=== PATIENT | male | born 1960 | race Caucasian/White ===

== ENCOUNTER 2019-03-16 02:28 | Emergency (ER) | payer OTHER, SELFPAY ==
[2019-03-16] VITALS (10 sets, daily range): BP systolic 88–136; BP diastolic 60–88; PULSE 61–95; RESP 15–21; TEMP 36.6; O2SAT 92–98; BMI 317.1; BMI 31.2
[2019-03-16] MEDS: PANTOPRAZOLE 40 MG VIAL IV (02:35)
--- NOTE | 2019-03-16 02:35 | DI.RAD.S_ITS ---
PROCEDURE: XR CHEST 1V INDICATIONS: chest pain TECHNIQUE: One view of the chest was acquired. COMPARISON: None. FINDINGS: Surgical changes and devices: None. Lungs and pleura: Lungs are clear. No pleural effusions or pneumothorax. Mediastinum: Mediastinal contours appear normal. Heart size is normal. Bones and chest wall: No suspicious bony lesions. Overlying soft tissues appear unremarkable. IMPRESSION: No acute cardiopulmonary disease process. Dictated by: Peggy العراقي MD, PhD on 03/16/2019 at 8:17 Approved by: Peggy العراقي MD, PhD on 03/16/2019 at 8:17
--- NOTE | 2019-03-16 02:47 | ED_ITS ---
HPI - Chest Pain General Chief Complaint: Chest Pain Stated Complaint: chest pain x8 hours Time Seen by Provider: 03/16/19 02:31 Source: patient Mode of arrival: ambulatory Limitations: no limitations History of Present Illness HPI narrative: Patient is a 58-year-old male with history of insulin-dependent diabetes is presenting with persistent right-sided chest pain. His been ongoing consistently for the last 8 hours it sometimes radiates through to his back. It started while he was watching TV this evening. However yesterday he noticed some symptoms associated with eating would resolve on its own. It is not reproducible with movement or palpitations. He states he has never felt anything like this before. No known history of coronary artery disease. He has no worsening discomfort with exertion or rest. MD complaint: chest pain Onset (ago): hour(s) (8) Related Data Home Medications Medication Instructions Recorded Confirmed glipizide 10 mg tablet 10 mg PO DAILY 12/02/17 12/02/17 Previous Rx's Medication Instructions Recorded Metformin Hydrochloride 500 mg PO BID #60 10/08/11 (#GLUCOPHAGE) Allergies Allergy/AdvReac Type Severity Reaction Status Date / Time No Known Drug Allergies Allergy Verified 12/02/17 10:40 Review of Systems Review of Systems GENERAL: Denies chills, fatigue, malaise, fever, sweats, travel HEENT: Denies sinus pain, ear pain, sore throat, difficulty swallowing, neck pain RESPIRATORY: Denies dyspnea, cough, wheezing, hemoptysis, sputum. CARDIOVASCULAR: See HPI GASTROINTESTINAL: Denies nausea, vomiting, abdominal pain, diarrhea, constipation, melena. : Denies dysuria, frequency, incontinence, hematuria, urinary retention, flank pain. MUSCULOSKELETAL: Denies weakness, joint pain, or bony pain SKIN: No rash, no erythema, no pruritus NEUROLOGIC: Denies weakness, dizziness, headache, numbness, change in speech, confusion PSYCHIATRIC: No concerning psychosocial issues. 12 point review of systems is negative except for those stated above and HPI [facility] Medical History Hyperlipidemia (Acute) Diabetes (Acute) Surgical History Status post appendectomy (Acute) Social History marital status: Smoking Status: Former smoker Social History marital status: Smoking Status: Former smoker Exam Initial Vital Signs Initial Vital Signs: Vital Signs Temperature 97.9 F 03/16/19 02:33 Pulse Rate 76 03/16/19 02:33 Respiratory Rate 18 03/16/19 02:33 Blood Pressure 134/86 03/16/19 02:33 Pulse Oximetry 98 03/16/19 02:33 GENERAL: Well-appearing, well-nourished and in no acute distress. HEENT: Head atraumatic,EOMI, pupils reactive, face symmetric, moist mucous membranes CARDIOVASCULAR: Regular rate and rhythm without murmurs, rubs or gallops. Right-sided pain not reproducible with palpation RESPIRATORY: Breath sounds equal bilaterally, no wheezes rales or rhonchi. ABDOMEN: Soft, nontender. Normoactive bowel sounds all 4 quadrants. No guarding or rebound. EXTREMITIES: Normal range of motion, no clubbing or edema. Neurovascularly intact NEUROLOGICAL: Alert and oriented x4.Normal gait and speech. Cranial nerves II through XII grossly intact. SKIN: Warm, dry, no laceration, no petechiae, no rashes or lesions. Course Orders Ordered: ED Orders 03/16/19 EKG-12 Lead Stat EKG-12 Lead Stat 03/16/19 02:30 Complete Blood Count AUTO DIFF Stat Comprehensive Metabolic Panel Stat Lipase Stat Partial Thromboplastin Time Stat Prothrombin Time INR Stat Troponin & CK Cardiac Panel Stat 03/16/19 02:35 XR chest 1V Stat EKG-12 Lead Stat Discontinued Medications Aspirin (Aspirin Chew) 324 mg PO NOW ONE Stop: 03/16/19 02:36 Last Admin: 03/16/19 03:30 Dose: 324 mg Heparin Sodium (Porcine) (Heparin) 5,000 unit IV NOW ONE Stop: 03/16/19 03:28 Last Admin: 03/16/19 03:32 Dose: 5,000 unit Sodium Chloride (Normal Saline 0.9%) 1,000 mls @ 150 mls/hr IV CONT ROYER Last Admin: 03/16/19 03:01 Dose: 150 mls/hr Heparin Sodium/Dextrose (Heparin Drip) 25,000 unit in 500 mls @ 20 mls/hr IV CONT ROYER; Protocol Last Admin: 03/16/19 03:34 Dose: 1,000 units/hr, 20 mls/hr Morphine Sulfate (Morphine) 2 mg IV NOW ONE Stop: 03/16/19 03:39 Last Admin: 03/16/19 03:42 Dose: 2 mg Morphine Sulfate (Morphine) 2 mg IV NOW ONE Stop: 03/16/19 04:17 Last Admin: 03/16/19 04:22 Dose: 2 mg Nitroglycerin (Nitrostat) 0.4 mg SL [id number] PRN PRN Reason: Chest Pain Last Admin: 03/16/19 02:52 Dose: 0.4 mg Pantoprazole Sodium (Protonix) 40 mg IV NOW ONE Stop: 03/16/19 02:36 Last Admin: 03/16/19 02:35 Dose: 40 mg Consultations Consultation #1: Dr. Iglesias updated patient's symptoms test results. Happy to accept patient over at [facility]. Time: 03:37 Vital Signs - 8 hr 03/16/19 02:33 03/16/19 02:52 03/16/19 03:00 Temperature 97.9 F Pulse Rate 76 82 61 Respiratory Rate 18 17 Blood Pressure 134/86 136/88 88/60 L Blood Pressure [Left Arm] 97/64 Pulse Oximetry 98 93 03/16/19 03:24 03/16/19 03:26 03/16/19 03:30 Temperature 97.9 F Pulse Rate 61 66 72 Respiratory Rate 17 18 16 Blood Pressure 136/88 Blood Pressure [Left Arm] 119/68 129/78 Pulse Oximetry 93 98 96 03/16/19 03:48 03/16/19 04:00 03/16/19 04:30 Temperature Pulse Rate 71 85 94 H Respiratory Rate 18 15 17 Blood Pressure Blood Pressure [Left Arm] 136/74 136/75 118/72 Pulse Oximetry 97 96 94 03/16/19 05:00 Temperature Pulse Rate 95 H Respiratory Rate 21 Blood Pressure Blood Pressure [Left Arm] 122/73 Pulse Oximetry 92 MDM - Chest Pain Lab Data Attestation: I reviewed the patient's lab results. Result diagrams: 03/16/19 02:30 03/16/19 02:30 Lab Results 03/16/19 03/16/19 03/16/19 Range/Units 02:30 02:30 02:30 WBC 8.4 (4.5-11.0) X10^3/uL RBC 5.29 (4.5-5.9) X10^6/uL Hgb 15.9 (13.5-17.5) g/dL Hct 46.9 (41-53) % MCV 88.6 (80-100) fL MCH 30.0 (26-34) PG MCHC 33.8 (30-36) % RDW 13.6 (11.6-14.8) % Plt Count 212 (150-400) X10^3/uL Neut % (Auto) 66.3 (50-75) % Lymph % (Auto) 22.2 L (25-40) % Josephine % (Auto) 8.7 (3-14) % Eos % (Auto) 2.1 (2-4) % Baso % (Auto) 0.7 (0-2) % Neut # (Auto) 5600 (7199-7059) /uL Lymph # (Auto) 1900 (6100-9862) /uL Josephine # (Auto) 700 (0-900) /uL Eos # (Auto) 200 (0-450) /uL Baso # (Auto) 100 (0-100) /uL PT 10.2 (10.1-12.7) SECONDS INR 0.9 (0.9-1.3) APTT 32 (26.4-36.2) SECONDS Sodium 136 L (137-145) mmol/L Potassium 4.1 (3.4-5.1) mmol/L Chloride 101 (98-107) mmol/L Carbon Dioxide 27 (22-32) mmol/L BUN 26 H (9-20) mg/dL Creatinine 0.80 (0.66-1.25) mg/dL Estimated GFR > 60.0 (>60) mL/min BUN/Creatinine Ratio 32.5 H (6-22) Glucose 304 H (70-100) mg/dL Calcium 9.9 (8.4-10.2) mg/dL Total Bilirubin 0.4 (0.2-1.3) mg/dL AST 46 (17-59) IU/L ALT 31 (21-72) IU/L Alkaline Phosphatase 103 (38-126) U/L Total Creatine Kinase 376 H (55-170) U/L CK-MB (CK-2) 17.10 H (<2.37) ng/mL CK-MB (CK-2) Rel Index 4.5 (1.5-5.0) % Troponin I 1.370 H* (0.01-0.034) ng/mL Total Protein 6.8 (6.3-8.2) g/dL Albumin 4.1 (3.5-5.0) g/dL Globulin 2.7 (1.7-4.1) g/dL Albumin/Globulin Ratio 1.5 (1.0-2.8) Lipase 72 (23-300) U/L ECG Data Attestation: I personally reviewed and interpreted this ECG as follows: Prior ECG tracings: available for review Interpretation: EKG 1. Normal sinus rhythm rate [address] changes no T-wave inversion EKG 2. Sinus rhythm at rate [address] changes in inferior leads but no significant ST elevation after J-point no ST depression, no T-wave inversions EKG 3. Sinus rhythm rate 68 no changes from prior Right-sided EKG no ST elevation in V4, or any other leads MDM Narrative Medical decision making narrative: Patient was given aspirin and nitroglycerin initially. Nitroglycerin dropped his blood pressure to a systolic of 80s he became diaphoretic and sweaty. IV fluids were started and placed in Trendelenburg. Has lightheaded and diaphoresis improved however his chest pain returned. Troponin returned critical and positive at 1.37. Cardiology was consulted immediately patient placed on heparin drip. He is given morphine for pain. Discharge Plan Departure Patient Disposition: [facility] Clinical Impression: Myocardial infarction Qualifiers: Myocardial infarction type: non-ST elevation myocardial infarction Qualified Code(s): I21.4 - Non-ST elevation (NSTEMI) myocardial infarction Discharge Date/Time: 03/16/19 05:40 Interventions: ED Discharge Assessment Last Done: 03/16/19 05:39 Prescriptions: No Action glipizide 10 mg tablet 10 mg PO DAILY RF: 0 Metformin Hydrochloride (#GLUCOPHAGE) 500 mg PO BID Qty: 60 RF: 3 Referrals: Mily Reyes DO [Primary Care Provider] -
[2019-03-16 02:52] LABS: Add Manual Diff / Slide Review NO; Basophils Absolute Auto 100 /uL (0-100); Basophils Percent Auto 0.7 % (0-2); Eosinophils Absolute Auto 200 /uL (0-450); Eosinophils Percent Auto 2.1 % (2-4); Hematocrit 46.9 % (41-53); Hemoglobin 15.9 g/dL (13.5-17.5); Lymphocytes Absolute Auto 1900 /uL (1100-4500); Lymphocytes Percent Auto 22.2 % (25-40); Mean Corpuscular HGB Conc 33.8 % (30-36); Mean Corpuscular Volume 88.6 fL (80-100); Monocytes Absolute Auto 700 /uL (0-900); Monocytes Percent Auto 8.7 % (3-14); Neutrophils Absolute Auto 5600 /uL (1500-7000); Neutrophils Percent Auto 66.3 % (50-75); Platelet Count 212 X10^3/uL (150-400); Red Blood Cell Count 5.29 X10^6/uL (4.5-5.9); Red Cell Distribution Width 13.6 % (11.6-14.8); White Blood Cell Count 8.4 X10^3/uL (4.5-11.0)
[2019-03-16] MEDS: NITROGLYCERIN 0.4 MG SL TAB SL (02:52)
[2019-03-16 03:01] LABS: INR 0.9 (0.9-1.3); Prothrombin Time 10.2 SECONDS (10.1-12.7)
[2019-03-16] MEDS: SODIUM CHLORIDE 0.9% 1,000 ML 150 ML IV (03:01)
[2019-03-16 03:03] LABS: PTT Partial Thromboplastin Tim 32 SECONDS (26.4-36.2)
[2019-03-16 03:04] LABS: Alanine Aminotransferase 31 IU/L (21-72); Albumin 4.1 g/dL (3.5-5.0); Albumin Globulin Ratio 1.5 (1.0-2.8); Alkaline Phosphatase 103 U/L (38-126); Aspartate Aminotransferase 46 IU/L (17-59); BUN Creatinine Ratio 32.5 (6-22); Bilirubin Total 0.4 mg/dL (0.2-1.3); Blood Urea Nitrogen 26 mg/dL (9-20); Calcium 9.9 mg/dL (8.4-10.2); Carbon Dioxide 27 mmol/L (22-32); Chloride 101 mmol/L (98-107); Creatine Kinase 376 U/L (55-170); Estimated Glomerular Filt Rate > 60.0 mL/min (>60); Globulin 2.7 g/dL (1.7-4.1); Glucose 304 mg/dL (70-100); HEMOLYSIS 24 (0-50); Lipase 72 U/L (23-300); Potassium 4.1 mmol/L (3.4-5.1); Sodium 136 mmol/L (137-145); Total Protein 6.8 g/dL (6.3-8.2)
[2019-03-16 03:20] LABS: CKMB % Relative Index 4.5 % (1.5-5.0)
[2019-03-16] MEDS: ASPIRIN 81 MG TAB 324 MG PO (03:30)
[2019-03-16] MEDS: HEPARIN 5,000 UNIT/ML VIAL 5000 UNIT IV (03:32)
[2019-03-16] MEDS: HEPARIN DRIP 25,000 UNIT/500 ML IV.SOLN 20 UNIT IV (03:34)
[2019-03-16] MEDS: MORPHINE 2 MG/ML INJ IV ×2 (03:42→04:22)
--- NOTE | 2019-04-11 22:31 | PC.NURSE ---
Late Entry 03/16/19 PT had Heparin Drip started at 0334 with rate of 20 mls/hr and still infusing upon transport and DC from ER at 0540.
== END 2019-03-16 05:40 | disposition short-term general hospital (02) ==
PROVIDERS: Emergency Provider Emergency Medicine; Family Provider Emergency Medicine; PCP Family Medicine
DX: I21.4 Non-ST elevation (NSTEMI) myocardial infarction (principal)
CPT/HCPCS: 36591; 71045; 80053; 82550; 82553; 83690; 84484; 85025; 85610; 85730; 93005; 93010; 96365; 96366; 96375; 96376; 99283; 99285; C9113; J1644; J2270

== ENCOUNTER → 2019-06-06 12:53 | Outpatient (CLI) | payer OTHER, SELFPAY ==
--- NOTE | 2019-06-08 11:59 | DIET.PN ---
Diabetes Intake: Initial Assessment Assess: Mr. Scott is a 58 YOM referred for type 2 diabetes. He has a long standing hx of diabetes (1998). [facility] He had a heart attack in Mar 2019 and believes this to be related to his diabetes and unhealthy lifestyle choices. Since then he has completely removed fast food from his diet and is motivated to make serious lifestyle changes. He complains of digestive issues with more frequent diarrhea for the last 2-3 months, particularly with nuts and salad. He is unable to take more than 1000 mg of metformin. He is currently enrolled in the cardiorehab program at which he attends 3x/wk. He is currently doing no other activity outside of that. He does monitor his BG, but does not keep a record. Labs: Per pt report: A1c: 9.9 TC: 221 HDL: 33 Tri Meds: Metf: 500 mg BID; Lantus: 50 u qd; Novolo u BID; Glyburide Diet: per 24 hr recall: Previously not following any plan. Currently cut out fast food. Needs instruction on Carb counting and individual needs. Wt: 206 lb Ht: 70 in BMI: 29.5 Goal Wt: 180 lb DX: Altered nutrition related laboratory values related to impaired glucose metabolism, lack of previous exposure to nutrition information as evidenced by pt report, diagnosis of diabetes, previous diet high in refined carbohydrates. Intervention: 1. Completed intake assessment. Discussed barriers to care. 2. Discussed pathophysiology of diabetes. Reviewed A1c and its correlation to blood glucose numbers. Discussed recommended BG ranges. 3. Discussed importance of self-monitoring, how often, and when to check. 4. Reviewed hyper/hypoglycemia and treatment. 5. Reviewed safe disposal of equipment (strip/lancets/insulin needles). 6. Created SMART goals for pt self-care and success. 7. Discussed program curriculum outline and class needs based on individual goals. SMART Goals: 1. Lose 10 lbs (5%) of current weight in 3 mo with a total goal of 25 lbs through changes in dietary habits such as learning to count carbs and how much is needed and increasing physical activity by exercising on additional days when he does not have cardiorehab. 2. To keep a record of blood glucose and food to see how/which foods effect his glucose. Monitor/Evaluate: Anticipate excellent compliance. Pt will attend full DSME program. Basic Nutrition class scheduled for Jun 12.
== END ==
PROVIDERS: Family Provider Emergency Medicine; PCP Family Medicine; Visit Provider Specialist
DX: E11.9 Type 2 diabetes mellitus without complications (principal); Z71.3 Dietary counseling and surveillance
CPT/HCPCS: G0108

== ENCOUNTER 2019-06-11 14:00 | Outpatient (RCR) | payer OTHER, SELFPAY | END 2019-06-20 15:26 | LOC: CAR 14:00 | PROVIDERS: Family Provider Emergency Medicine; PCP Family Medicine; Visit Provider Specialist | DX: I21.3 ST elevation (STEMI) myocardial infarction of unspecified site (principal) | CPT/HCPCS: 93798 ==

== ENCOUNTER → 2019-06-12 14:18 | Outpatient (CLI) | payer OTHER, SELFPAY | PROVIDERS: Family Provider Emergency Medicine; PCP Family Medicine; Visit Provider Specialist | DX: E11.9 Type 2 diabetes mellitus without complications (principal); Z71.3 Dietary counseling and surveillance | CPT/HCPCS: G0109 ==

== ENCOUNTER → 2024-07-05 12:07 | Outpatient (CLI) | payer OTHER, SELFPAY ==
[2024-07-05 12:37] LABS: Hematocrit 43.1 % (41-53); Hemoglobin 14.7 g/dL (13.5-17.5); Mean Corpuscular HGB Conc 34.2 % (30-36); Mean Corpuscular Hemoglobin 30.4 PG (26-34); Platelet Count 172 X10^3/uL (150-400); Red Blood Cell Count 4.84 X10^6/uL (4.5-5.9); Red Cell Distribution Width 13.4 % (11.6-14.8); White Blood Cell Count 5.1 X10^3/uL (4.5-11.0)
[2024-07-05 12:57] LABS: BUN Creatinine Ratio 27.2 (6-22); Blood Urea Nitrogen 25 mg/dL (9-20); Calcium 9.2 mg/dL (8.4-10.2); Carbon Dioxide 26 mmol/L (22-32); Chloride 106 mmol/L (98-107); Cholesterol 202 mg/dL (140-199); Estimated Glomerular Filt Rate > 60 mL/min (>60); Glucose 251 mg/dL (80-110); HDL Cholesterol 30 mg/dL (40-60); HEMOLYSIS < 15 (0-50); Hemoglobin A1C% w Est Avg Glu 11.3 % (4.0-6.0); LDL Cholesterol Calculated 113 mg/dL (<100); Potassium 4.7 mmol/L (3.4-5.1); Sodium 138 mmol/L (137-145); Triglycerides 293 mg/dL (35-150)
[2024-07-05 13:25] LABS: Prostate Specific Antigen 1.91 ng/mL (0.10-4.00)
[2024-07-05 14:55] LABS: Creatinine Urine Random 108.91 mg/dL
== END ==
PROVIDERS: Family Provider Emergency Medicine; PCP Nurse Practitioner Family; Referring Provider Nurse Practitioner Family; Visit Provider Nurse Practitioner Family
DX: E11.9 Type 2 diabetes mellitus without complications (principal); Z12.5 Encounter for screening for malignant neoplasm of prostate
CPT/HCPCS: 36415; 80048; 80061; 82043; 82570; 83036; 84153; 85027

== ENCOUNTER → 2024-07-11 07:51 | Outpatient (CLI) | payer OTHER, SELFPAY ==
--- NOTE | 2024-08-02 17:22 | DIAB.MNT ---
Initial Diabetes Medical Nutrition Therapy Assessment Name: Daniel Scott Date: 07/11/24 Time: 9-10a Dx: Type II Diabetes Irvin presents for initial DM visit. Reports dx of DM in 1998 during hi time in the [place]. Endorses [place] in 2019. 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 UTD on eye appt. States [facility], so [facility] outside [facility]. Does not have a meter to check BG. has Sindy 3 but his pharmacy is out of stock right now. Reports fatigue, feeling as though he will pass out for lows and lethargy for high BG. Not taking his lisinopril or statin (it doesn't work). Cannot take Metformin due to stomach upset, not taking glipizide. Wants to know what he can/cannot eat. Avoids fast food per report. Endorses scar tissue with insulin injections. Not always taking insulin for last meal of the day. Interested in insulin pump therapy, 780G. 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 Uses Sindy 3 Diabetes Medications: 50u Lantus BID 30u BID Novolog Pertinent Labs: HgA1c; 11.3% 07/2024 Past Medical History: (Last Updated 07/30/24 @ 19:10 by Cesia Blankenship) CAD (coronary artery disease) Diabetes insulin dependent GERD (gastroesophageal reflux disease) Hx of myocardial infarction (~2018) Hyperlipidemia doesn't always take medication Hyperlipidemia Obesity Nutrition Rx: Carbohydrates: Meal:45g Snack:15-30g Nutrition Diagnosis: - Nutrition and food related knowledge deficit r/t limited nutrition education aeb pt report - Excessive CHO intake r/t nutrition knowledge deficit aeb diet recall with cereal Intervention: This participant was very receptive. Provided appropriate educational handouts. Discussed the following topics: Completed intake assessment. Discussed barriers to care. Importance of self-monitoring, how often, and when to check. Suggested back up meter. Review of injection site rotation and avoiding scar tissue Review of insulin pump types, pro/con, actions Ways to reduce CHO intake at some meals Recs for pairing and portions Role of physical activity Created SMART goals for patient self-care and success. Goals: Start taking Novolog with higher CHO meal at 2a- new Request back up meter- new try toast with PB instead of cereal Follow-up: KYLER BARNETT follow-up in 2-3 weeks. Started process of insulin pump acquisition per pt req. Kimberly Walsh, KYLER, [facility] Certified Diabetes Care and School Supervisor P: [phone] Thank you for this referral
== END ==
PROVIDERS: Family Provider Emergency Medicine; PCP Nurse Practitioner Family; Referring Provider Nurse Practitioner Family
DX: E11.65 Type 2 diabetes mellitus with hyperglycemia (principal); I25.2 Old myocardial infarction; Z71.3 Dietary counseling and surveillance; Z79.4 Long term (current) use of insulin; E66.811 Obesity, class 1; Z68.30 Body mass index [BMI] 30.0-30.9, adult
CPT/HCPCS: 97802

== ENCOUNTER → 2024-08-03 16:04 | Outpatient (CLI) | payer OTHER, SELFPAY ==
--- NOTE | 2024-08-31 09:41 | DIAB.MNTFU ---
Follow-up Diabetes Medical Nutrition Therapy Assessment Name: Daniel Scott Date: 08/03/24 Time: 305-405p Dx: Type II Diabetes Irvin presents for follow-up DM visit. Reports dx of DM in 1998 during hi time in the [place]. Endorses [place] in 2019. 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 UTD on eye appt. Endorses some eye bleeding Soaking feet or using lotion to manage neuropathy pain. Seems to have some scar tissue from MDI. Questions regarding insulin storage and pump. Still debating on source for pump coverage, private insurance vs [facility]. In process with [employer]. Reports reflux at 430-5am when eating at work. Avoiding cereal at thist epifanio. [facility]. Running out of insulin and plans to discus wtih [facility] Reports too much junk food i the house for kids/grandkids Tried Ozempic and reports GI upset Not sure if he has tried Jardiance or not States low BG are rar, maybe 1x q few month. Symptoms include weakness, sweaty, and fatigue. Treats with glucose tabs. 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 Consistent hyperglycemia per CGM. TIR: 82% very high 14% high 4% in range 0% low or very low Av mg/dl GMI: 11.1% Diabetes Medications: 50u Lantus BID 30u BID Novolog Pertinent Labs: HgA1c; 11.3% 07/2024 Past Medical History: (Last Updated 07/30/24 @ 19:10 by Cesia Blankenship) CAD (coronary artery disease) Diabetes insulin dependent GERD (gastroesophageal reflux disease) Hx of myocardial infarction (~2019) Hyperlipidemia doesn't always take medication Hyperlipidemia Obesity Nutrition Rx: Carbohydrates: Meal:45g Snack:15-30g Nutrition Diagnosis: - Nutrition and food related knowledge deficit r/t limited nutrition education aeb pt report- in progress - Excessive CHO intake r/t nutrition knowledge deficit aeb diet recall with cereal- improved Intervention: This participant was very receptive. Provided appropriate educational handouts. Discussed the following topics: Completed intake assessment. Discussed barriers to care. Carb counting and portions at meals [place] snack ideas with paired CHO and protein Types of fats Insulin storage, injection site rotation, insulin pump action Reducing DM complications: foot and eye Created SMART goals for patient self-care and success. Goals: Start taking Novolog with higher CHO meal at 2a- sometimes met Request back up meter- met try toast with PB instead of cereal- met Choose lotion for feet over soaking- new Call [employer] rep for info on VA v private insurance coverage- new Ask [facility] about SGLT2i- new Limit meals to 45g or 1c - new Follow-up: KYLER BARNETT follow-up in 3-4 weeks Kimberly Walsh RDN, [facility]ICK[facility] Certified Diabetes Care and Manager [place] P: [phone] Thank you for this referral
== END ==
PROVIDERS: Family Provider Emergency Medicine; PCP Nurse Practitioner Family; Referring Provider Nurse Practitioner Family
DX: E11.9 Type 2 diabetes mellitus without complications (principal); Z71.3 Dietary counseling and surveillance; I25.2 Old myocardial infarction; Z79.4 Long term (current) use of insulin
CPT/HCPCS: 97803

== ENCOUNTER → 2024-08-31 14:48 | Outpatient (CLI) | payer OTHER, SELFPAY ==
--- NOTE | 2024-08-31 17:32 | DIAB.MNTFU ---
Follow-up Diabetes Medical Nutrition Therapy Assessment Name: Daniel Scott Date: 08/31/24 Time: 350-440p Dx: Type II Diabetes Irvin presents for follow-up DM visit. Reports dx of DM in 1998 during hi time in the [place]. Endorses [place] in 2019. 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 UTD on eye appt. Endorses some eye bleeding Has made some significant diet changes and cut out most carbs, increased veggies. BG have improved, though still high. Also some constipation with low CHO/low fiber intake. Using 45g CHO as his max intake in a sitting. Questions regarding label reading. Cut out fast food unless only veggies and protein Plans to get insulin pump via [facility]. Has appt with endo in Sep. Unclear which pump, but plans to switch to Dexcom, so Omnipod or Tandem? Spoke with [facility] about SGLT2i and states he did have a rxn to Jardiance, but cannot remember what that was. Using lotion on feet instead of soaking. Working a lot of hours at work. Feels low at 100mg/dl, takes one glucose tab (3-4g CHO) which helps Injecting in same two spots and palpable scar tissue is present. Anthropometrics: Ht: 5'10 Wt: 211.5# Physical Activity: walking at work 4 days per week Self-Monitoring Blood Glucose: Uses Sindy 3. Consistent hyperglycemia per CGM, but much improved since last visit. Today TIR: 38% very high 32% high 30% in range 0% low or very low Av mg/dl GMI: 8.9% Variance: 34.3% Last TIR: 82% very high 14% high 4% in range 0% low or very low Av mg/dl GMI: 11.1% Diabetes Medications: 50u Lantus BID 30u Novolog with meals Pertinent Labs: HgA1c; 11.3% 07/2024 Past Medical History: (Last Updated 07/30/24 @ 19:10 by Cesia Blankenship) CAD (coronary artery disease) Diabetes insulin dependent GERD (gastroesophageal reflux disease) Hx of myocardial infarction (~2019) Hyperlipidemia doesn't always take medication Hyperlipidemia Obesity Nutrition Rx: Carbohydrates: Meal:45g Snack:15-30g Nutrition Diagnosis: - Nutrition and food related knowledge deficit r/t limited nutrition education aeb pt report- improved - Predicted inadequate fiber intake r/t cut out all CHO aeb diet recall and report of constipation- new Intervention: This participant was very receptive. Provided appropriate educational handouts. Discussed the following topics: Fiber foods Sugar free beverages BG alerts review Injecting in different spots: upper ab, legs, bottom carb counting review and label reading for insulin pump prep Different types of pumps action Carb counting resources Hypoglycemia tx and symptoms Created SMART goals for patient self-care and success. Goals: Choose lotion for feet over soaking- met Call [employer] rep for info on VA v private insurance coverage- met Ask VA about SGLT2i- met Limit meals to 45g or 1c - met Add more fiber- new Rotate sites- new Be aware of potential for lows- new Email RD about pump plan with [facility] Follow-up: KYLER BARNETT follow-up in 4 weeks Kimberly Walsh RDN, ERICK[facility] Certified Diabetes Care and Regulatory Lead P: [phone] Thank you for this referral
== END ==
LOC: DIET 14:48
PROVIDERS: Family Provider Emergency Medicine; PCP Nurse Practitioner Family; Referring Provider Nurse Practitioner Family
DX: E11.9 Type 2 diabetes mellitus without complications (principal); I25.2 Old myocardial infarction; Z71.3 Dietary counseling and surveillance; Z79.4 Long term (current) use of insulin
CPT/HCPCS: 97803

== ENCOUNTER → 2024-10-05 15:45 | Outpatient (CLI) | payer OTHER, SELFPAY ==
--- NOTE | 2024-11-20 08:20 | DIAB.MNTFU ---
Follow-up Diabetes Medical Nutrition Therapy Assessment Name: Daniel Scott Date: 10/05/24 Time: 4-445p Dx: Type II Diabetes Irvin presents for follow-up DM visit. Avoiding fast food and processed foods. Started taking a fiber supplement, which seems to help with constipation. Trying to get insulin pump via [facility]. Has appt on 10/30/24. Keeps sugar tabs in the car for low tx. Diet recall: 6-7p: protein and veggies sn: nuts or protein bar or pb crackers 2a: protein and veggies or nuts +/- pb crackers 8-9a: bagel with cream cheese OR cheese omelette Anthropometrics: Ht: 5'10 Wt: 211.5# Physical Activity: walking at work 4 days per week Self-Monitoring Blood Glucose: Uses Sindy 3. Continued hyperglycemia similar to last visit. Today TIR: 39% very high 30% high 31% in range 0% low or very low Av mg/dl GMI: 8.9% Variance: 34.9% Last TIR: 38% very high 32% high 30% in range 0% low or very low Av mg/dl GMI: 8.9% Variance: 34.3% Diabetes Medications: 50u Lantus BID 30u Novolog with meals Pertinent Labs: HgA1c; 11.3% 07/2024 Past Medical History: (Last Updated 07/30/24 @ 19:10 by Cesia Blankenship) CAD (coronary artery disease) Diabetes insulin dependent GERD (gastroesophageal reflux disease) Hx of myocardial infarction (~2019) Hyperlipidemia doesn't always take medication Hyperlipidemia Obesity Nutrition Rx: Carbohydrates: Meal:45g Snack:15-30g Nutrition Diagnosis: - Predicted inadequate fiber intake r/t cut out all CHO aeb diet recall and report of constipation- improved Intervention: This participant was very receptive. Provided appropriate educational handouts. Discussed the following topics: Carb portion review and pairing veggie intake Insulin pump options and access Hypoglycemia tx and symptoms Created SMART goals for patient self-care and success. Goals: Add more fiber- met Rotate sites- met Be aware of potential for lows- met Email RD about pump plan with [facility]- met with phone call Continue nutrition changes- new Consider increase in Novolog for bagel- new Follow-up: KYLER CEBALLOSES follow-up requested for after receiving Omnipod insulin pump. Plans to call RD after endo visit with an update. Kimberly Walsh RDN, [facility] Certified Diabetes Care and Electrical Appliance Servicer P: [phone] Thank you for this referral
== END ==
PROVIDERS: Family Provider Emergency Medicine; PCP Nurse Practitioner Family; Referring Provider Nurse Practitioner Family
DX: E11.65 Type 2 diabetes mellitus with hyperglycemia (principal); Z71.3 Dietary counseling and surveillance; K59.00 Constipation, unspecified; Z79.4 Long term (current) use of insulin
CPT/HCPCS: 97803

== ENCOUNTER → 2025-01-03 08:00 | Outpatient (CLI) | payer OTHER, SELFPAY ==
--- NOTE | 2025-01-03 09:04 | DIAB.FU ---
Follow-up Diabetes Education Assessment: Personal CGM and Insulin Pummp Start Name: Daniel Scott Date: 01/03/25 Time: 9-10a Dx: Type II Diabetes Irvin presents for follow-up DM visit, accompanied by Med[employer] job trainer. Today he brought his Medtronic 780G and Guardian 4 connect to start new personal CGM and insulin pump. Some visible scar tissue on lower abdomen from repeat injections. May impact insulin sensitivity/absorption. Will reduce settings for insulin infusion to avoid lows. Pump Settings: Basal rate: 2.5u/hour --- reduced by 20%: 2.0u/hour IC ratio: 1:4 ISF: 1:15 Will use set dosing of 20u per meal at this time. Self-Monitoring Blood Glucose: Uses Sindy 3. Continued hyperglycemia, increased since last visit Today TIR: 56% very high 19% high 25% in range 0% low or very low Av mg/dl GMI: 9.6% Variance: 36.7% Last TIR: 39% very high 30% high 31% in range 0% low or very low Av mg/dl GMI: 8.9% Variance: 34.9% Diabetes Medications: 50u Lantus BID--- d/c 30u Novolog with meals --- d/c Novolog via insulin pump- new Pertinent Labs: HgA1c; 11.3% 07/2024 Past Medical History: (Last Updated 07/30/24 @ 19:10 by Cesia Blankenship) CAD (coronary artery disease) Diabetes insulin dependentGERD (gastroesophageal reflux disease) Hx of myocardial infarction (~2019) Hyperlipidemia doesn't always take medicationHyperlipidemia Obesity Intervention: This participant was very receptive. Provided appropriate educational handouts. Discussed the following topics: Medtronic Guardian 4 and 780G pump placement, education, precautions Bolusing education Automation review Created SMART goals for patient self-care and success. Goals: Wear new pump and CGM bolus for meals Follow-up: KYLER BARNETT follow-up in two weeks. Will follow-up with [employer] job trainer in one day, three days, and potentially one week. Kimberly Walsh RDN, ERICKA Certified Diabetes Care and Sharepoint Analyst P: [phone] Thank you for this referral
== END ==
PROVIDERS: Family Provider Emergency Medicine; PCP Nurse Practitioner Family; Referring Provider Nurse Practitioner Family
DX: E11.65 Type 2 diabetes mellitus with hyperglycemia (principal); Z46.81 Encounter for fitting and adjustment of insulin pump; Z71.3 Dietary counseling and surveillance; Z79.4 Long term (current) use of insulin
CPT/HCPCS: 95249

== ENCOUNTER → 2025-01-18 14:41 | Outpatient (CLI) | payer OTHER, SELFPAY ==
--- NOTE | 2025-01-18 14:47 | DIAB.FU ---
Follow-up Diabetes Education Assessment Name: Daniel Scott Date: 01/18/25 Time: 3-330p Dx: Type II Diabetes Irvin presents for follow-up DM visit. Reports really liking insulin pump/CGM automated system. He has doubled his time in range. Today we will adjust his target since he is not having any side effects from BG reductions. Reports he needs a review on bolusing and CHO counting. seems to miss bolusing or under bolus for meals. Needs info on ordering CGM adhesives. States he needs more guidance on when to change infusion sets Asked about risks for dementia and hyperglycemia over time. Endorses improved reflux, which may r/t better digestion with improved BG (gastroparesis?) Also reports improved BM, less diarrhea significant per report. Pump Settings: Basal rate: 2.5u/hour --- reduced by 20%: 2.0u/hour IC ratio: 1:4 ISF: 1:15 Smart Guard Target: 120mg/dl TDD: 95.8u Self-Monitoring Blood Glucose: Much improved TIR since insulin pump therapy. Today TIR: 16% very high 30% high 54% in range 0% low or very low Av mg/dl GMI: 7.7% Variance: % std dev: 65mg/dl Last TIR: 56% very high 19% high 25% in range 0% low or very low Av mg/dl GMI: 9.6% Variance: 36.7% Diabetes Medications: Novolog via insulin pump Pertinent Labs: HgA1c; 11.3% 07/2024 Past Medical History: (Last Updated 07/30/24 @ 19:10 by Cesia Blankenship) CAD (coronary artery disease) Diabetesinsulin dependentGERD (gastroesophageal reflux disease) Hx of myocardial infarction (~2018) Hyperlipidemia doesn't always take medicationHyperlipidemia Obesity Intervention: This participant was very receptive. Provided appropriate educational handouts. Discussed the following topics: Bolus recommendations CHO counting Bolusing for correction Adhesive options for CGM Carb counting resources Impact of hyperglycemia on digestion over time Impact of chronic hyperglycemia on insulin resistance of the brain over time Changing infusion sets (7 days for extended, 3 days for regular) Created SMART goals for patient self-care and success. Goals: Wear new pump and CGM- met bolus for meals- in progress Order adhesives for CGM- new Bolus pre meal- new Bolus for correction prn- new Carb count or use set dosing, as discussed - new Follow-up: KYLER BARNETT follow-up in 2-3 weeks Kimberly Walsh RDN, ERICKA Certified Diabetes Care and Java Security Architect P: [phone] Thank you for this referral
== END ==
PROVIDERS: Family Provider Emergency Medicine; PCP Nurse Practitioner Family; Referring Provider Nurse Practitioner Family
DX: E11.9 Type 2 diabetes mellitus without complications (principal); Z96.41 Presence of insulin pump (external) (internal); Z79.4 Long term (current) use of insulin; Z71.3 Dietary counseling and surveillance
CPT/HCPCS: G0108

== ENCOUNTER → 2025-02-08 07:56 | Outpatient (CLI) | payer OTHER, SELFPAY ==
--- NOTE | 2025-02-08 08:00 | DIAB.FU ---
Follow-up Diabetes Education Assessment Name: Daniel Scott Date: 02/08/25 Time: 533l Dx: Type II Diabetes Irvin presents for follow-up DM visit. Unable to access online pump reports due to pump not connected to kalie. Today we repaired the pump. Reports avoiding high CHO foods most times. Notices elevations when eating out or higher CHO refined breakfasts, ie pancakes. Increased protein lately with BBQ meats. Using correction bolusing for elevations. Bolusing pre meal per report, usually 20-40g per meal. Only placing sites on left side of body, though states he is avoiding scar tissue. Endorses one low of 50mg/dl while sleeping. Corrected with sugar tablet. Eating veggies 1-2x per day. Reports neuropathy still present but improved. Due for hgA1c lab Pump Settings: Basal rate: 2.0u/hour IC ratio: 1:4 ISF: 1:15 Smart Guard Target: 120mg/dl---- 100mg/dl TDD: 95.8u--- 105.8u Self-Monitoring Blood Glucose: Improved TIR with in goal >70% in range Today TIR: 0% very high 26% high 72% in range 0% low or very low Av mg/dl GMI: % Variance: % std dev: 46.6mg/dl Last TIR: 16% very high 30% high 54% in range 0% low or very low Av mg/dl GMI: 7.7% Variance: % std dev: 65mg/dl Diabetes Medications: Novolog via insulin pump Pertinent Labs: HgA1c; 11.3% 07/2024 Past Medical History: (Last Updated 07/30/24 @ 19:10 by Cesia Blankenship)CAD (coronary artery disease) Diabetesinsulin dependent GERD (gastroesophageal reflux disease) Hx of myocardial infarction (~2019) Hyperlipidemia doesn't always take medication Hyperlipidemia Obesity Intervention: This participant was very receptive. Provided appropriate educational handouts. Discussed the following topics: Encouraged changing site placements Encouraged higher bolusing for higher CHO meals or eating out Reviewed last labs and need for new Reviewed reduced risks with improved BG Paired pump with kalie Created SMART goals for patient self-care and success. Goals: Order adhesives for CGM- met Bolus pre meal- met Bolus for correction prn- met Carb count or use set dosing, as discussed - met Change sides/placement of sites- new Try 60g CHO for eating out or pancakes- new Get new hgA1c- new Follow-up: KYLER BARNETT follow-up in 2 months Kimberly Walsh RDN, [facility] Certified Diabetes Care and Ticket Collector Or Usher P: [phone] Thank you for this referral
== END ==
PROVIDERS: Family Provider Emergency Medicine; PCP Nurse Practitioner Family; Referring Provider Nurse Practitioner Family
DX: E11.9 Type 2 diabetes mellitus without complications (principal); Z71.3 Dietary counseling and surveillance; T85.694A Other mechanical complication of insulin pump, initial encounter; Z79.4 Long term (current) use of insulin; Z96.41 Presence of insulin pump (external) (internal)
CPT/HCPCS: G0108

== ENCOUNTER → 2025-04-05 07:47 | Outpatient (CLI) | payer OTHER, SELFPAY ==
--- NOTE | 2025-04-05 09:40 | DIAB.FU ---
Follow-up Diabetes Education Assessment Name: Daniel Scott Date: 04/05/25 Time: Dx: Type II Diabetes Irvin presents for follow-up DM visit. Improved hgA1c of 8.5%. [facility]27 and changed IC to strengthen insulin action, which seems to have improved postprandial BG. Most elevated BG are related to missed or late bolusing. Endorses feeling dizzy and disoriented with BG >250mg/dl. Endorses reduced exercise and increased sweets on weekends (ie cookies, ice cream). Rotating infusion sites some, but still using same area for pump sites. Pump Settings: Basal rate: 2.0u/hour IC ratio: 1:4--- 1:3 ISF: 1:15 Smart Guard Target: 120mg/dl---- 100mg/dl TDD: 95.8u--- 105.8u Self-Monitoring Blood Glucose: Increased time 250mg/dl though in range time in goal. Elevations r/t missed or late bolusing. Today TIR: 8% very high 18% high 74% in range 0% low or very low Av mg/dl GMI: 7.1% Variance: 34.6% std dev: 55mg/dl Last TIR: 0% very high 26% high 72% in range 0% low or very low Av mg/dl GMI: % Variance: % std dev: 46.6mg/dl Diabetes Medications: Novolog via insulin pump Pertinent Labs: HgA1c; 11.3% 07/2024 8.5% 03/2025 Past Medical History: (Last Updated 07/30/24 @ 19:10 by Cesia Blankenship)CAD (coronary artery disease)Diabetesinsulin dependent GERD (gastroesophageal reflux disease) Hx of myocardial infarction (~2019) Hyperlipidemia doesn't always take medication Hyperlipidemia Obesity Intervention: This participant was very receptive. Provided appropriate educational handouts. Discussed the following topics: Encouraged changing site placements more frequently Encouraged bolusing prior to eating Carb in certain sweets he eats Impact of sweets on BG Created SMART goals for patient self-care and success. Goals: Change sides/placement of sites- in progress Try 60g CHO for eating out or pancakes- in progress Get new hgA1c- met Bolus prior to eating- new Try to avoid sweets- new Follow-up: KYLER BARNETT follow-up in 4-6 weeks Kimberly Walsh RDN, ERICKA Certified Diabetes Care and Chicken Cleaner P: [phone] Thank you for this referral
== END ==
PROVIDERS: Family Provider Emergency Medicine; PCP Nurse Practitioner Family; Referring Provider Nurse Practitioner Family
DX: E11.9 Type 2 diabetes mellitus without complications (principal); Z71.3 Dietary counseling and surveillance; Z79.4 Long term (current) use of insulin; Z96.41 Presence of insulin pump (external) (internal)
CPT/HCPCS: G0108

== ENCOUNTER → 2025-05-10 07:55 | Outpatient (CLI) | payer OTHER, SELFPAY ==
--- NOTE | 2025-05-10 08:05 | DIAB.MNTFU ---
Follow-up Diabetes Medical Nutrition Therapy Assessment Name: Daniel Scott Date: 05/10/25 Time: Dx: Type II Diabetes Irvin presents for follow-up DM visit. Just back from trip to [place]. More fast food during trip. Did not bring insulin pens with him on trip as back up. Overall, BG improved. Endo making adjustments to pump settings. F/u in Nov with endo and PCP. Trying to avoid sweets, but this has been a challenge. Often missing pre meal bolus due to fear of lows and/or unsure how much to bolus. Some increased neuropathy reported today. Low alert on pump set to 80mg/dl. Has questions about nutrition regarding cheese. Likes string cheese and cheddar. Having some issues with filling reservoir. Needs review of technique. States he may be taking glipizide due to endo rec. Per PCP notes, glipizide d/c'd, which this RD would agree with. Diet Recall: 8p: protein and veggies 12-2a: protein OR furnace hand salad OR wrap with breaded chx 8a: eggs and williamson OR muffin Pump Settings: Basal rate: 2.0u/hour IC ratio: 1:4--- 1:3 ISF: 1:15 Smart Guard Target: 120mg/dl---- 100mg/dl TDD: 95.8u--- 105.8u--- 100.3u Self-Monitoring Blood Glucose: Improved TIR though still excessive tiem >250mg/dl Today TIR: 5% very high 15% high 80% in range 0% low or very low Av mg/dl GMI: 6.7% Variance: 38.3% std dev: 55mg/dl Last TIR: 8% very high 18% high 74% in range 0% low or very low Av mg/dl GMI: 7.1% Variance: 34.6% std dev: 55mg/dl Diabetes Medications: Novolog via insulin pump glipizide? Pertinent Labs: HgA1c; 11.3% 07/2024 8.5% 03/2025 Past Medical History: (Last Updated 07/30/24 @ 19:10 by Cesia Blankenship)CAD (coronary artery disease)Diabetesinsulin dependent GERD (gastroesophageal reflux disease) Hx of myocardial infarction (~2019) Hyperlipidemia doesn't always take medication Hyperlipidemia Obesity Nutrition Rx: Carbohydrates: Meal:45gSnack:15-30g Nutrition Diagnosis: - Predicted inadequate fiber intake r/t limited whole grains and veggies aeb diet recall - new - Predicted excessive CHO intake r/t sweets intake aeb elevated BG and pt report- new Intervention: This participant was very receptive. Provided appropriate educational handouts. Discussed the following topics: Encouraged pre meal bolusing Reviewed carb content of foods he enjoys Reviewed bolusing according to smal/med/large meals Veggie intake Potential for lows with insulin and glipizide Traveling with insulin/pump supplies Low alerts changed to <70mg/dl Technique for filling reservoir Created SMART goals for patient self-care and success. Goals: Bolus prior to eating- improved/in progress Try to avoid sweets- improved Try bolusing according to meal size, as discussed- new Check if you are taking glipizide- new Aim for veggies 2x per day or more- new Follow-up: KYLER BARNETT follow-up in 4 weeks. Nov f/u with PCP and endo. Kimberly Walsh, KYLER, LINES Certified Diabetes Care and Fireman Helper P: [phone] Thank you for this referral
== END ==
PROVIDERS: Family Provider Emergency Medicine; PCP Nurse Practitioner Family; Referring Provider Nurse Practitioner Family
DX: E11.9 Type 2 diabetes mellitus without complications (principal); Z79.4 Long term (current) use of insulin; Z79.84 Long term (current) use of oral hypoglycemic drugs; Z96.41 Presence of insulin pump (external) (internal)
CPT/HCPCS: 97803

== ENCOUNTER → 2025-06-07 07:44 | Outpatient (CLI) | payer OTHER, SELFPAY ==
--- NOTE | 2025-07-12 10:34 | DIAB.MNTFU ---
Follow-up Diabetes Medical Nutrition Therapy Assessment Name: Daniel Scott Date: 06/07/25 Time: Dx: Type II Diabetes Irvin presents for follow-up DM visit. Upgrading CGM with tarpipe new sensors is available, but he has not yet upgraded. No longer taking Glipizide. More stress this week, which seems to have caused some diarrhea per report. Financial stress. Stress with washer leaking in home. Eating more veggies, ie salads Using low CHo wraps, not bolsuing for wraps Avoiding processed potatoes Every couple days, notes pain on the pads of his feet. Due for labs Sees endo this month 06/2025 Has questions about max bolus changes. Currently at 25u. Pump Settings: Basal rate: 2.0u/hour IC ratio: 1:4--- 1:3 ISF: 1:15 Smart Guard Target: 120mg/dl---- 100mg/dl TDD: 95.8u--- 105.8u--- 100.3u--- 91.7u Self-Monitoring Blood Glucose: In goal TIR though still excessive time >250mg/dl Today TIR: 5% very high 15% high 80% in range 0% low or very low Av mg/dl GMI: 6.9% Variance: 34.5% std dev: 52mg/dl Last TIR: 5% very high 15% high 80% in range 0% low or very low Av mg/dl GMI: 6.7% Variance: 38.3% std dev: 55mg/dl Diabetes Medications: Novolog via insulin pump Pertinent Labs: HgA1c; 11.3% 07/2024 8.5% 03/2025 Past Medical History: (Last Updated 03/15/25 @ 08:27 by Tammy Cesar [facility]) CAD (coronary artery disease) Diabetes insulin dependent GERD (gastroesophageal reflux disease) Hx of myocardial infarction (~2018) Hyperlipidemia doesn't always take medication Hyperlipidemia Hypertension Obesity Vitamin D deficiency Nutrition Rx: Carbohydrates: Meal:45gSnack:15-30g Nutrition Diagnosis: - Predicted inadequate fiber intake r/t limited whole grains and veggies aeb diet recall - improved - Predicted excessive CHO intake r/t sweets intake aeb elevated BG and pt report- improved Intervention: This participant was very receptive. Provided appropriate educational handouts. Discussed the following topics: Veggie intake Steps to upgrate CGM Bolusing for CHO Max bolus calculations Stress impact on eating and BG Created SMART goals for patient self-care and success. Goals: Try bolusing according to meal size, as discussed- met Check if you are taking glipizide- met Aim for veggies 2x per day or more- met Upgrade CGM- new bolus for CHO between meals- new Ask endo about max bolus rec- new Follow-up: KYLER BARNETT follow-up in 3 months or sooner arturo Walsh RDN, ERICKA Certified Diabetes Care and Home Health Lpn P: [phone] Thank you for this referral
== END ==
PROVIDERS: Family Provider Emergency Medicine; PCP Nurse Practitioner Family; Referring Provider Nurse Practitioner Family
DX: E11.9 Type 2 diabetes mellitus without complications (principal); Z71.3 Dietary counseling and surveillance; Z96.41 Presence of insulin pump (external) (internal); Z79.4 Long term (current) use of insulin
CPT/HCPCS: 97803

== ENCOUNTER → 2025-06-14 15:27 | Outpatient (CLI) | payer OTHER, SELFPAY ==
[2025-06-14 16:40] LABS: Hemoglobin A1C% w Est Avg Glu 7.7 % (4.0-6.0)
[2025-06-14 16:55] LABS: Blood Urea Nitrogen 13 mg/dL (9-20); Calcium 9.4 mg/dL (8.4-10.2); Carbon Dioxide 25 mmol/L (22-32); Chloride 110 mmol/L (98-107); Cholesterol 87 mg/dL (140-199); Estimated Glomerular Filt Rate > 60 mL/min (>60); Glucose 121 mg/dL (70-99); HDL Cholesterol 35 mg/dL (40-60); HEMOLYSIS < 15 (0-50); Potassium 4.5 mmol/L (3.4-5.1); Sodium 144 mmol/L (137-145); Triglycerides 75 mg/dL (35-150)
[2025-06-14 17:12] LABS: Vitamin D 25 Hydroxy (D3) 37.5 ng/mL (30.0-100.0)
== END ==
LOC: LAB 15:28
PROVIDERS: PCP Nurse Practitioner Family; Referring Provider Nurse Practitioner Family; Visit Provider Nurse Practitioner Family
DX: E78.2 Mixed hyperlipidemia (principal); E66.811 Obesity, class 1; I25.10 Atherosclerotic heart disease of native coronary artery without angina pectoris; E11.65 Type 2 diabetes mellitus with hyperglycemia; E55.9 Vitamin D deficiency, unspecified; I10 Essential (primary) hypertension; Z68.30 Body mass index [BMI] 30.0-30.9, adult; Z79.4 Long term (current) use of insulin
CPT/HCPCS: 36415; 80048; 80061; 82306; 83036